=== PATIENT | female | born 1965 | race Caucasian/White ===

== ENCOUNTER 2017-05-11 08:18 | Emergency (ER) | payer BC ==
[2017-05-11 08:33] VITALS: BP 180/98
--- NOTE | 2017-05-11 09:09 | EDM.PDOC ---
ED HPI GENERAL MEDICAL PROBLEM - General Chief Complaint: Lower Extremity Injury/Pain Stated Complaint: BALL OF RT FOOT SWELLING Time Seen by Provider: 05/11/17 08:46 Source of Information: Reports: Patient, RN Notes Reviewed - History of Present Illness INITIAL COMMENTS - FREE TEXT/NARRATIVE: 52 old lady comes in with right foot pain. She's been having trouble with the foot for about a week. She was under severe stress about a week ago back home in [place], "tried to hang herself". When she got cut down and down hard on her feet. What is been sore ever since. she also did step on a thorn about 9 days ago and wonders if that could be part of her trouble. She does not feel anything is in her foot at this time. She is here in [place] area visiting relatives, trying to relax and recover from the stressful situation she was facing a week ago back, in [place]. States she is doing okay emotionally, does not feel suicidal at this time. No other pain or injury at this time. The foot is okay at rest, increased pain with weightbearing base of second and third toes. 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: - Past Surgical History HEENT Surgical History: Reports: Tonsillectomy GI Surgical History: Reports: Cholecystectomy Female Surgical History: Reports: Section Other Female Surgeries/Procedures: uterine ablation Neurological Surgical History: Reports: Sacral Spine Social & Family History - Tobacco Use Smoking Status *Q: Current Every Day Smoker Years of Tobacco use: 15 Packs/Tins Daily: 0.5 - Caffeine Use Caffeine Use: Reports: Coffee, Soda - Recreational Drug Use Recreational Drug Use: No Review of Systems - Review of Systems Review Of Systems: See Below Mouth/Throat: Reports: No Symptoms Respiratory: Denies: Shortness of Breath Cardiovascular: Denies: Chest Pain GI/Abdominal: Denies: Abdominal Pain, Nausea, Vomiting Musculoskeletal: Reports: Joint Pain (right foot, base of second and third toes) Skin: Reports: No Symptoms Neurological: Reports: No Symptoms Psychiatric: Denies: Suicidal Ideation ED EXAM, GENERAL - Physical Exam Exam: See Below General Appearance: Alert, No Apparent Distress Head: Atraumatic Neck: Supple Respiratory/Chest: No Respiratory Distress Extremities: Joint Swelling (there is some swelling distal foot dorsal aspect over the base of the second and third toes), Redness (there is mild erythema and swelling of the distal plantar aspect of the foot, no foreign body seen, no active drainage), Other (there is tenderness plantar aspect of foot base of second and third toes) Neurological: No Motor/Sensory Deficits Skin Exam: Warm, Dry, Normal Color Course - Vital Signs Last Recorded V/S: Last Vital Signs Temp 97.1 F 05/11/17 08:27 Pulse 73 05/11/17 08:27 Resp 13 05/11/17 08:27 BP 180/98 H 05/11/17 08:27 Pulse Ox 97 05/11/17 08:27 - Orders/Labs/Meds Orders: Active Orders 24 hr Category Date Time Status Foot Comp Min 3V Rt [CR] Stat Exams 05/11/17 08:52 Taken - Re-Assessments/Exams Free Text/Narrative Re-Assessment/Exam: 05/11/17 09:38 x-ray the foot is negative for fracture, she may have a mild localized cellulitis from stepping on the thorn 9 days ago, no foreign body visible, will put her on a course of cephalexin 500 mg 4 times daily for 1 week Departure - Departure Time of Disposition: 09:32 Disposition: Home, Self-Care 01 Condition: Fair Clinical Impression: Cellulitis Qualifiers: Site of cellulitis: extremity Site of cellulitis of extremity: lower extremity Laterality: right Qualified Code(s): L03.115 - Cellulitis of right lower limb - Discharge Information Referrals: PCP,Not In Area [Primary Care Provider] - Forms: ED Department Discharge Additional Instructions: cephalexin antibiotic 500 mg 4 times daily for 1 week or until gone, soak foot in warm soapy water or Epsom salts 2 to 3 times daily, antibiotic ointment after each soaking,Tylenol as needed for discomfort, rest and elevate foot as much as possible. follow-up clinic as needed if symptoms not resolving as expected. - My Orders Last 24 Hours: My Active Orders 05/11/17 08:52 Foot Comp Min 3V Rt [CR] Stat - Assessment/Plan Last 24 Hours: My Active Orders 05/11/17 08:52 Foot Comp Min 3V Rt [CR] Stat
--- NOTE | 2017-05-12 12:55 | CR ---
Right foot: Four views of the right foot were obtained. Comparison: No prior study. Soft tissue swelling is identified. No acute fracture, dislocation or other bony abnormality is seen. Impression: 1. No bony abnormality appreciated on right foot study. Soft tissue swelling. Diagnostic code #2
== END 2017-05-11 10:00 | disposition home or self-care (01) ==
LOC: JD.ED 08:18
DX: L03.115 Cellulitis of right lower limb (principal); I10 Essential (primary) hypertension; K21.9 Gastro-esophageal reflux disease without esophagitis; F17.210 Nicotine dependence, cigarettes, uncomplicated; Z91.040 Latex allergy status; Z79.899 Other long term (current) drug therapy
CPT/HCPCS: 73630-26-RT; 73630-RT; 99283